=== PATIENT | female | born 1970 | race Two or more races ===

== ENCOUNTER 2021-12-01 13:42 | Emergency (ER) | payer SELFPAY ==
[~2021-12-01] VITALS: Ht 147.3 cm; Wt 66.2 kg
[2021-12-01] MEDS ORDERED: ASPirin 81 mg TAB PO ONE (14:00)
[2021-12-01 14:31] LABS: Basophils # (auto) 0.3 10 ^3/uL (0-0.2); Basophils % (auto) 2.4 % (0.0-2.0); Eosinophils # (auto) 0.1 10 ^3/uL (0-0.8); Hemoglobin 14.5 g/dL (12.2-16.2); Lymphocytes # (auto) 2.2 10 ^3/uL (0.4-5.4); Lymphocytes % (auto) 20.7 % (10.0-50.0); Mean Corpuscular Hemoglobin 29.3 pg (28.0-32.0); Mean Corpuscular Hgb Conc. 33.7 g/dL (32.0-36.0); Mean Corpuscular Volume 87.1 fL (80.0-100.0); Monocytes # (auto) 0.4 10 ^3/uL (0-1.3); Monocytes % (auto) 3.5 % (0.0-12.0); Neutrophils # (auto) 7.8 10 ^3/uL (1.6-8.6); Neutrophils % (auto) 72.4 % (37.0-80.0); Nucleated Red Blood Cells % 0.2 %; Red Blood Cells 4.94 10^6/uL (4.0-5.20); Red Cell Distribution Width 13.5 % (11.8-14.3); White Blood Cell 10.8 10^3/uL (4.4-10.8)
[2021-12-01 14:43] LABS: Albumin 4.2 g/dL (3.4-5.0); Potassium 3.7 mmol/L (3.5-5.1)
[2021-12-01 14:52] LABS: BUN/Creatinine Ratio 17.9; Bilirubin, Total 0.4 mg/dL (0.2-1.0); Total Protein 8.2 g/dL (6.4-8.2)
[2021-12-01 16:39] VITALS: BP 169/69
== END 2021-12-01 16:51 | disposition home or self-care (01) ==
LOC: ER 13:42
DX: R07.89 Other chest pain (principal); I10 Essential (primary) hypertension; Z98.890 Other specified postprocedural states
CPT/HCPCS: 36415; 71046; 80053; 84484; 85025; 85379; 93005